=== PATIENT | male | born 1980 | race Caucasian/White ===

== ENCOUNTER 2018-06-17 15:56 | Observation (INO) ==
[2018-06-17] MEDS ORDERED: Sod Chloride 0.9% Inj 1,000 ML IV.SIG ONE ×2 (16:25→17:39)
--- NOTE | 2018-06-17 16:56 | XR ---
EXAM DATE: 06/17/2018 4:54 PM EDT AGE/SEX: 38 years / Male INDICATIONS: Short of breath. Chest pain. CLINICAL DATA: This is the patient's initial encounter. Patient reports that signs and symptoms have been present for 1 day and indicates a pain score of 5/10. MEDICAL/SURGICAL HISTORY: None. None. COMPARISON: HPO, CHEST 1V SINGLE AP, 06/05/2018. . FINDINGS: A single AP view of the chest demonstrates the lungs to be symmetrically aerated without evidence of mass, infiltrate or effusion. The cardiomediastinal contours are unremarkable. Osseous structures a re intact. CONCLUSION: 1. No acute cardiopulmonary disease. Electronically signed by: Boogie Grande MD 06/17/2018 4:54 PM EDT
--- NOTE | 2018-06-17 17:03 | ED ---
HPI General Chief Complaint: Chest Pain Stated Complaint: Chest pain previously dx with anxiety Source: patient Mode of arrival: ambulatory Limitations: no limitations History of Present Illness HPI narrative: 38-year-old male complains of chest pain palpitations anxiety. He states the very first episode occurred about 2-1/2 years prior. Since then the episodes have become more frequent and he reports now experiencing them once daily at least. Today the patient was relaxing watching TV and felt his chest become tight and warm and then warmth spread all over his body. He reports losing his job about a month and a half ago and has been very stressed out because of it. He has not tried [id number] medication. He reports eating healthy food now. He does not drink coffee having quit in an effort to mitigate symptoms. 12 days prior he was seen here with essentially the same complaint and workup at that point was unremarkable. And included a d-dimer troponin and blood work as well as an EKG and chest x-ray. He was prescribed Xanax 0.5 mg tablets that he took 0.25 as needed for anxiety. He states that Xanax is marginally helpful however he still had anxiety while taking the Xanax. Patient also reports that his blood pressure at times during anxious episodes and reports systolic rates from 110s to 140s. Complete Quality Measures for STEMI Alert Patients Related Data Previous Rx's Medication Instructions Recorded alprazolam [Xanax] 0.25 mg PO BID PRN #7 tab 06/05/18 Allergies Allergy/AdvReac Type Severity Reaction Status Date / Time No Known Allergies Allergy Verified 06/17/18 15:58 Review of Systems ROS: all other systems reviewed are negative [facility] Medical History Medical History Anxiety (Acute) Social History Social History Substance History: No History of Abuse Second Hand Smoke Exposure: No Smoking Status: Current every day smoker Tobacco Type: E-Cigarettes How Often Do You Have a Drink Containing Alcohol: Never Recent Travel in [facility] within the Last 8 Weeks: No Recent Out of Country Travel within the Last 8 Weeks: No Exam Narrative Exam Narrative: GENERAL: 38-year-old male well-nourished well-developed minimally anxious though reasonably cooperative SKIN: Focused skin assessment warm/dry. HEAD: Atraumatic. Normocephalic. EYES: Pupils equal and round. No scleral icterus. No injection or drainage. ENT: No nasal bleeding or discharge. Mucous membranes pink and moist. NECK: Trachea midline. No JVD. CARDIOVASCULAR: Heart rate is about 80-90. Regular rhythm. RESPIRATORY: No accessory muscle use. Clear to auscultation. Breath sounds equal bilaterally. GASTROINTESTINAL: Abdomen soft, non-tender, nondistended. Hepatic and splenic margins not palpable. MUSCULOSKELETAL: No obvious deformities. No clubbing. No cyanosis. No edema. NEUROLOGICAL: Awake and alert. No obvious cranial nerve deficits. Motor grossly within normal limits. Normal speech. PSYCHIATRIC: Anxious. Dysthymic v agitated. Course Reevaluation(s) Reevaluation #1: BP down to 140/84 as of 537pm. Patient reports improved pain after nitro. He asked if waking up with anxiety and night is normal. He notes that heart rate increases to 120 at times during anxiety episodes. Pt states he is worried about his heart. Patient nonetheless resting comfortably and reports feeling better since arrival. Time: 17:28 Initial Documented Vital Signs Temperature 97.8 F 06/17/18 15:58 Pulse Rate 73 06/17/18 15:58 Respiratory Rate 16 06/17/18 15:58 Blood Pressure 147/87 H 06/17/18 15:58 Pulse Oximetry 100 06/17/18 15:58 Last Documented Vital Signs Temperature 97.8 F 06/17/18 15:58 Pulse Rate 62 06/17/18 17:30 Respiratory Rate 18 06/17/18 17:30 Blood Pressure 140/84 06/17/18 17:30 Pulse Oximetry 98 06/17/18 17:30 Medical Decision Making MDM Narrative Medical decision making narrative: Results of the workup were discussed. Patient is very low risk for coronary disease with the only real risk factor being history of smoking, now vaping. Workup today is unremarkable and we have a reasonable alternative explanation, anxiety, however the patient has verbalized improvement after nitro and grave concern regarding coronary health. Chest pain center evaluation protocol considered a reasonable next step for this patient. Case d/w Dr Miller for [facility]. Medical Screen Exam Complete: Yes Emergency Medical Condition: Yes Medical Records Medical records reviewed: Yes I reviewed the patient's medical records. Lab Data Lab results reviewed: Yes I reviewed the patient's lab results. Lab results narrative: Tn < 0.02 Urine drug screen is negative Result diagrams: 06/17/18 16:50 06/17/18 16:50 Lab Results 06/17/18 06/17/18 06/17/18 Range/Units 16:50 16:50 17:20 CBC w Diff Auto diff final WBC 10.3 (4.0-11.0) th/mm3 RBC 5.41 (4.50-5.90) mil/mm3 Hgb 16.9 (13.0-17.0) gm/dL Hct 50.9 (39.0-51.0) % MCV 94.2 (80.0-100.0) fL MCH 31.2 (27.0-34.0) pg MCHC 33.1 (32.0-36.0) % RDW 11.7 (11.6-17.2) % Plt Count 279 (150-450) th/mm3 MPV 9.1 (7.0-11.0) fL Neut % (Auto) 66.1 (16.0-70.0) % Lymph % (Auto) 26.4 (9.0-44.0) % [place] % (Auto) 4.1 (0.0-8.0) % Eos % (Auto) 1.9 (0.0-4.0) % Baso % (Auto) 1.5 (0.0-2.0) % Neut # (Auto) 6.8 (1.8-7.7) th/mm3 Lymph # (Auto) 2.7 (1.0-4.8) th/mm3 [place] # (Auto) 0.4 (0.0-0.9) th/mm3 Eos # (Auto) 0.2 (0.0-0.4) th/mm3 Baso # (Auto) 0.2 (0.0-0.2) th/mm3 WBC Differential . Differential Comment . Sodium 138 (136-145) meq/L Potassium 3.2 L (3.5-5.1) meq/L Chloride 102 (98-107) meq/L Carbon Dioxide 24.1 (21.0-32.0) meq/L Anion Gap 12 (5-15) meq/L BUN 10 (7-18) mg/dL Creatinine 1.10 (0.60-1.30) mg/dL Estimated GFR 75 L (>89) mL/min Random Glucose 112 H (74-106) mg/dL Calcium 9.4 (8.5-10.1) mg/dL Magnesium 2.4 (1.5-2.5) mg/dL Troponin I Less than 0.02 L (0.02-0.05) ng/mL Urine Opiates Screen Neg (Neg) Ur Barbiturates Screen Neg (Neg) Ur Amphetamines Screen Neg (Neg) U Benzodiazepines Scrn Neg (Neg) Urine Cocaine Screen Neg (Neg) U Cannabinoids Screen Neg (Neg) Imaging Data Radiologist's impression: Chest X-Ray 06/17/18 16:25 CONCLUSION: 1. No acute cardiopulmonary disease. ECG Data Attestation: I personally reviewed and interpreted this ECG as follows: Interpretation: EKG shows sinus rhythm normal axis intervals no ischemic injury pattern Discharge Plan Discharge Disposition Patient Disposition: 30 Still Patient Physicians Team ED Provider: Lalo Britton Primary Care Provider: Primary Care Tuyet Elias Attending Provider: William Miller Discharge Interventions Interventions: Vital Signs Last Done: 06/17/18 16:20 Status ED Status: Admitted Observation Patient
[2018-06-17 17:06] LABS: Chloride 102 meq/L (98-107); Potassium 3.2 meq/L (3.5-5.1); Sodium 138 meq/L (136-145)
[2018-06-17 17:08] LABS: Calcium 9.4 mg/dL (8.5-10.1)
[2018-06-17 17:09] LABS: Anion Gap 12 meq/L (5-15); Blood Urea Nitrogen 10 mg/dL (7-18); Carbon Dioxide 24.1 meq/L (21.0-32.0); Glucose,Random 112 mg/dL (74-106); Magnesium 2.4 mg/dL (1.5-2.5)
[2018-06-17 17:10] LABS: Baso # (Auto) 0.2 th/mm3 (0.0-0.2); Baso % (Auto) 1.5 % (0.0-2.0); Eos # (Auto) 0.2 th/mm3 (0.0-0.4); Eos % (Auto) 1.9 % (0.0-4.0); Hematocrit 50.9 % (39.0-51.0); Hemoglobin 16.9 gm/dL (13.0-17.0); Lymph # (Auto) 2.7 th/mm3 (1.0-4.8); Lymph % (Auto) 26.4 % (9.0-44.0); Mean Corpuscular HGB Conc 33.1 % (32.0-36.0); Mean Corpuscular Hemoglobin 31.2 pg (27.0-34.0); Mean Corpuscular Volume 94.2 fL (80.0-100.0); Mean Platelet Volume 9.1 fL (7.0-11.0); Mono # (Auto) 0.4 th/mm3 (0.0-0.9); Mono % (Auto) 4.1 % (0.0-8.0); Neut # (Auto) 6.8 th/mm3 (1.8-7.7); Neut % (Auto) 66.1 % (16.0-70.0); Platelet Count 279 th/mm3 (150-450); Red Blood Count 5.41 mil/mm3 (4.50-5.90); Red Cell Distribution Width 11.7 % (11.6-17.2); White Blood Count 10.3 th/mm3 (4.0-11.0)
[2018-06-17 17:12] LABS: Glomerular Filtration Rate 75 mL/min (>89)
[2018-06-17 17:41] LABS: Amphetamine Screen,Urine Neg (Neg); Barbiturate Screen,Urine Neg (Neg); Cannabinoid Screen,Urine Neg (Neg); Cocaine Screen,Urine Neg (Neg)
[2018-06-17 17:48] LABS: Opiate Screen,Urine Neg (Neg)
[2018-06-17] MEDS ORDERED: Bisacodyl 10 MG Supp RECTAL PRN (18:45)
[2018-06-17] MEDS ORDERED: Acetaminophen 325 MG Tablet PO PRN (18:45)
--- NOTE | 2018-06-17 19:01 | P.HP ---
History of Present Illness Primary Care Physician: No Primary Care Physician Chief Complaint: chest pain History of Present Illness: This is a 38-year-old male with a history of anxiety. He presents to the emergency room complaining of chest pain. It starts as a warm sensation in his chest then spreads to the rest of his body associated with palpitations, heavy breathing and chest discomfort which he described as sharp and sometimes dull without radiation, nausea and diaphoresis. It is not related to exertion. Patient was seen in the emergency room about 2 weeks ago for similar complaints underwent negative workup. He was prescribed Xanax which according to him provided temporary relief. He still claims to have anxiety especially that he is currently unemployed. Denies depression. In the emergency room, he received aspirin, IV Ativan and sublingual nitroglycerin which helped with his symptoms. At this time he is symptom-free. All other systems reviewed negative. Risk factors for heart disease family history of [place], diabetes mellitus and hypertension. He used to smoke currently on E cigarettes. Review of Systems All other systems reviewed negative except as stated in HPI [facility] - History History Provided By: Patient - Medical History Medical History: Medical History (Last Updated 06/17/18 @ 16:19 by Melisa Mejia RN) Anxiety - Surgical History Surgical History: Surgical History (Last Reviewed 06/17/18 @ 16:19 by Melisa Mejia RN) No history of previous surgery - Tobacco History Second Hand Smoke Exposure: No Tobacco Use In Past 30 Days: Yes Smoking Status: Current every day smoker Tobacco Type: E-Cigarettes - Alcohol History How Often Do You Have a Drink Containing Alcohol: Never - Substance Use History Substance History: No History of Abuse - Travel History Recent Travel in the [place] Within the Last 8 Weeks: No Recent Travel Out of the Country Within the Last 8 Weeks: No - Immunization History Tetanus Immunization: >5 Years Hx Influenza Vaccine This Season: No Medications and Allergies Active Medications: Active Medications Acetaminophen (Tylenol) 650 mg PO Q4H PRN PRN Reason: Temp > 100.4 Al Hydroxide/Mg Hydroxide (Milk Of Magnmary Liq) 30 ml PO Q12H PRN PRN Reason: Mild Constipation Alprazolam (Xanax) 0.25 mg PO BID PRN PRN Reason: anxiety Bisacodyl (Dulcolax Supp) 10 mg RECTAL DAILY PRN PRN Reason: SEVERE CONSITIPATION Buspirone HCl (Buspar) 5 mg PO TID FRANCOIS Lactulose (Lactulose Liq) 30 ml PO DAILY PRN PRN Reason: SEVERE CONSITIPATION Nitroglycerin (Nitrostat Sl) 0.4 mg SL Q5M PRN PRN Reason: CHEST PAIN Ondansetron HCl (Zofran Inj) 4 mg IV.PUSH Q6H PRN PRN Reason: NAUSEA OR VOMITING Senna/Docusate Sodium (Erma-Colace) 1 tab PO BID FRANCOIS Sennosides (Senokot) 17.2 mg PO Q12H PRN PRN Reason: Moderate Constipation Sodium Chloride (Ns Flush) 2 ml IV.FLUSH UNSCH PRN PRN Reason: FLUSH AFTER USING IV ACCESS Allergies Allergy/AdvReac Type Severity Reaction Status Date / Time No Known Allergies Allergy Verified 06/17/18 15:58 Exam Vital signs: Vital Signs 06/17/18 15:58 06/17/18 16:20 06/17/18 17:30 Temperature 97.8 F Pulse Rate 73 102 H 62 Respiratory Rate 16 18 18 Blood Pressure 147/87 H 203/92 H 140/84 Pulse Oximetry 100 98 98 Intake & Output 06/16/18 06/17/18 06/17/18 18:59 06:59 18:59 Intake Total 1000 / 1000 Balance 1000 / 1000 Weight 104 kg Intake: IV 1000 / 1000 NS Inj 1,000 ML @ Wide Open IV. 1000 / 1000 SIG BOLUS ONE Rx#:[id number] Narrative: GENERAL: Well-developed and well-nourished in no distress SKIN: Warm and dry. HEAD: Atraumatic. Normocephalic. EYES: Pupils equal and round. No scleral icterus. No injection or drainage. ENT: No nasal bleeding or discharge. Mucous membranes pink and moist. NECK: Trachea midline. No JVD. CARDIOVASCULAR: Regular rate and rhythm. No chest wall tenderness RESPIRATORY: No accessory muscle use. Clear to auscultation. Breath sounds equal bilaterally. GASTROINTESTINAL: Abdomen soft, non-tender, nondistended. MUSCULOSKELETAL: Extremities without clubbing, cyanosis, or edema. No obvious deformities. NEUROLOGICAL: Awake and alert. No obvious cranial nerve deficits. Motor grossly within normal limits. Five out of 5 muscle strength in the arms and legs. Normal speech. PSYCHIATRIC: Appropriate mood and affect; insight and judgment normal. Results - Labs CBC & Chem 7: 06/17/18 16:50 06/17/18 16:50 Labs: Laboratory Results - last 24 hr 06/17/18 06/17/18 06/17/18 16:50 16:50 17:20 CBC w Diff Auto diff final WBC 10.3 RBC 5.41 Hgb 16.9 Hct 50.9 MCV 94.2 MCH 31.2 MCHC 33.1 RDW 11.7 Plt Count 279 MPV 9.1 Neut % (Auto) 66.1 Lymph % (Auto) 26.4 [place] % (Auto) 4.1 Eos % (Auto) 1.9 Baso % (Auto) 1.5 Neut # (Auto) 6.8 Lymph # (Auto) 2.7 [place] # (Auto) 0.4 Eos # (Auto) 0.2 Baso # (Auto) 0.2 WBC Differential . Differential Comment . Sodium 138 Potassium 3.2 L Chloride 102 Carbon Dioxide 24.1 Anion Gap 12 BUN 10 Creatinine 1.10 Estimated GFR 75 L Random Glucose 112 H Calcium 9.4 Magnesium 2.4 Troponin I Less than 0.02 L Urine Opiates Screen Neg Ur Barbiturates Screen Neg Ur Amphetamines Screen Neg U Benzodiazepines Scrn Neg Urine Cocaine Screen Neg U Cannabinoids Screen Neg - Imaging Impressions Chest X-Ray 06/17/18 16:25 CONCLUSION: 1. No acute cardiopulmonary disease. Caprini VTE Risk Assessment Caprini VTE Risk Assessment: No/Low Risk (score <= 1) Caprini Risk Assessment Model: Point Value = 1 Point Value = 2 Point Value = 3 Point Value = 5 Age 41-60 Minor surgery BMI > 25 kg/m2 Swollen legs Varicose veins or History of unexplained or recurrent spontaneous Oral contraceptives or hormone replacement Sepsis (< 1 month) Serious lung disease, including pneumonia (< 1 month) Abnormal pulmonary function Acute myocardial infarction Congestive heart failure (< 1 month) History of inflammatory bowel disease Medical patient at bed rest Age 61-74 Arthroscopic surgery Major open surgery (> 45 min) Laparoscopic surgery (> 45 min) Malignancy Confined to bed (> 72 hours) Immobilizing plaster cast Central venous access Age >= 75 History of VTE Family history of VTE Factor V Leiden Prothrombin [id number] Lupus anticoagulant Anticardiolipin antibodies Elevated serum homocysteine Heparin-induced thrombocytopenia Other congenital or acquired thrombophilia Stroke (< 1 month) Elective arthroplasty Hip, pelvis, or leg fracture Acute spinal cord injury (< 1 month) Prophylaxis Regimen: Total Risk Factor Score Risk Level Prophylaxis Regimen 0-1 Low Early ambulation 2 Moderate Order ONE of the following: *Sequential Compression Device (SCD) *Heparin 5000 units SQ BID 3-4 Higher Order ONE of the following medications: *Heparin 5000 units SQ TID *Enoxaparin/Lovenox 40 mg SQ daily (WT < 150 kg, CrCl > 30 mL/min) *Enoxaparin/Lovenox 30 mg SQ daily (WT < 150 kg, CrCl > 10-29 mL/min) *Enoxaparin/Lovenox 30 mg SQ BID (WT < 150 kg, CrCl > 30 mL/min) AND/OR *Sequential Compression Device (SCD) 5 or more Highest Order ONE of the following medications: *Heparin 5000 units SQ TID (Preferred with Epidurals) *Enoxaparin/Lovenox 40 mg SQ daily (WT < 150 kg, CrCl > 30 mL/min) *Enoxaparin/Lovenox 30 mg SQ daily (WT < 150 kg, CrCl > 10-29 mL/min) *Enoxaparin/Lovenox 30 mg SQ BID (WT < 150 kg, CrCl > 30 mL/min) AND *Sequential Compression Device (SCD) Assessment and Plan - Plan This is a 38-year-old male with a history of anxiety. He presents to the emergency room complaining of chest pain relieved with aspirin, nitroglycerin and IV Ativan. Risk factors for heart disease include family history of AZ, diabetes mellitus and hypertension. He used to smoke currently on E cigarettes. Atypical chest pain. Initial EKG is unremarkable tracing interpreted by me with sinus rhythm with no acute ST-T changes. Trend cardiac enzymes. Chest x- ray image interpreted by me with no acute cardiopulmonary disease. He received aspirin. Sublingual nitroglycerin as needed. N.p.o. post midnight for Lexiscan if he rules out for AZ. Patient unable to do exercise stress test secondary to right knee pain. Tobacco cessation. Anxiety. Start BuSpar and continue Xanax patient aware I will not be prescribing Xanax when he gets discharged Hypokalemia potassium 3.2. Patient received 20 mEq p.o. Will give another 20 mEq p.o. and repeat BMP and magnesium in the morning low risk for DVT Discharge Planning: Possible discharge home tomorrow if negative stress test
[2018-06-17] MEDS ORDERED: ALPRAZolam 0.25 MG Tablet PO PRN (20:15)
[2018-06-17] MEDS: Senna/Docusate Sodium 8.6/50 MG Tablet PO SCH (20:39)
[2018-06-17 22:57] LABS: Creatine Kinase 148 U/L (39-308)
--- NOTE | 2018-06-17 23:41 | ECG ---
Date Performed: 06/17/2018 Time Performed: 16:08:41 PTAGE: 38 years EKG: Sinus rhythm NORMAL ECG PREVIOUS TRACING : 06/05/2018 09.05 Since the previous tracing, no significant change noted DOCTOR: Jassi Britton Interpretating Date/Time 06/17/2018 23:39:05
[2018-06-18 06:19] LABS: Creatine Kinase 125 U/L (39-308)
[2018-06-18] MEDS: Senna/Docusate Sodium 8.6/50 MG Tablet PO SCH ×2 (08:18→08:25)
[2018-06-18 08:29] VITALS: RESP 20
[2018-06-18 08:54] LABS: Potassium 3.8 meq/L (3.5-5.1)
[2018-06-18 08:56] LABS: Calcium 8.9 mg/dL (8.5-10.1); Carbon Dioxide 28.6 meq/L (21.0-32.0)
[2018-06-18] MEDS ORDERED: Regadenoson Inj 0.4 MG/5 ML Syringe IV.PUSH ONE (09:47)
--- NOTE | 2018-06-18 11:21 | NM ---
EXAM DATE: 06/18/2018 10:48 AM EDT AGE/SEX: 38 years / Male INDICATIONS:Angina. . Substernal chest pain with palpitations and dyspnea. CLINICAL DATA: This is the patient's initial encounter. Patient reports that signs and symptoms have been present for 1 day and indicates a pain score of 1/10. MEDICAL/SURGICAL HISTORY: None. None. COMPARISON: No prior exams available for comparison. DOSE: 11 mCi Tc 99m Myoview at rest 35 mCi [id number] at stress 0.4 mg Lexiscan STRESS SYMPTOMS: Dyspnea. EJECTION FRACTION: 63 % TECHNIQUE: The patient underwent pharmacologic stress with infusion of prescribed dose. Continuous ECG tracing was monitored during stress. Gated SPECT imaging was performed after stress and conventi onal SPECT imaging was performed at rest. The examination was performed on a SPECT/CT scanner, both attenuation and non-corrected datasets were reviewed. FINDINGS: Distribution: The maximum perfused segment at stress is in the anterior lateral wall Perfusion Study: The pattern of perfusion at stress is within normal limits. Gated Study: There are intact wall motion and wall thickening without hypokinetic or dyskinetic segm ents. The ejection fraction is calculated at 63%. RISK CATEGORY: Low (<1% Annual Motality Rate) CONCLUSION: 1. Negative for stress-induced ischemia Electronically signed by: Sal Stoddard MD 06/18/2018 11:19 AM EDT
[2018-06-18 11:29] VITALS: O2SAT 99
--- NOTE | 2018-06-18 11:31 | P.PN ---
Subjective Interval history: Follow-up chest pain. No recurrence. Slept well. Patient educated regarding his anxiety. Physical Exam Vital signs: Vital Signs 06/17/18 15:58 06/17/18 16:20 06/17/18 17:30 Temperature 97.8 F Pulse Rate 73 102 H 62 Respiratory Rate 16 18 18 Blood Pressure 147/87 H 203/92 H 140/84 Pulse Oximetry 100 98 98 06/17/18 20:00 06/18/18 00:00 06/18/18 04:00 Temperature 98.1 F 97.5 F L 97.3 F L Pulse Rate 72 65 60 Respiratory Rate 18 18 18 Blood Pressure 132/85 113/66 115/73 Pulse Oximetry 97 96 97 06/18/18 08:00 Temperature 97.2 F L Pulse Rate 73 Respiratory Rate 20 Blood Pressure 117/76 Pulse Oximetry 100 Intake & Output 06/17/18 06/18/18 06/18/18 18:59 06:59 18:59 Intake Total 1000 / 1000 1480 / 1480 0 / 0 Output Total 500 / 500 Balance 1000 / 1000 1480 / 1480 -500 / -500 Weight 104 kg 103.7 kg Intake: IV 1000 / 1000 1000 / 1000 NS Inj 1,000 ML @ Wide Open IV. 1000 / 1000 1000 / 1000 SIG BOLUS ONE Rx#:[id number] Oral 480 / 480 0 / 0 Output: Urine 500 / 500 Other: # Voids 2 Date of Last Bowel Movement 06/17/18 Weight On Admission 105.4 kg Narrative: GENERAL: Well-developed and well-nourished in no distress SKIN: Warm and dry. CARDIOVASCULAR: Regular rate and rhythm. No chest wall tenderness RESPIRATORY: No accessory muscle use. Clear to auscultation. Breath sounds equal bilaterally. GASTROINTESTINAL: Abdomen soft, non-tender, nondistended. MUSCULOSKELETAL: Extremities without clubbing, cyanosis, or edema. No obvious deformities. NEUROLOGICAL: Awake and alert. No obvious cranial nerve deficits. Motor grossly within normal limits. Five out of 5 muscle strength in the arms and legs. Normal speech. PSYCHIATRIC: Appropriate mood and affect; insight and judgment normal. Results - Labs CBC & Chem 7: 06/17/18 16:50 06/18/18 04:40 Laboratory Results - last 24 hr 06/17/18 06/17/18 06/17/18 16:50 16:50 17:20 CBC w Diff Auto diff final WBC 10.3 RBC 5.41 Hgb 16.9 Hct 50.9 MCV 94.2 MCH 31.2 MCHC 33.1 RDW 11.7 Plt Count 279 MPV 9.1 Neut % (Auto) 66.1 Lymph % (Auto) 26.4 [place] % (Auto) 4.1 Eos % (Auto) 1.9 Baso % (Auto) 1.5 Neut # (Auto) 6.8 Lymph # (Auto) 2.7 [place] # (Auto) 0.4 Eos # (Auto) 0.2 Baso # (Auto) 0.2 WBC Differential . Differential Comment . Sodium 138 Potassium 3.2 L Chloride 102 Carbon Dioxide 24.1 Anion Gap 12 BUN 10 Creatinine 1.10 Estimated GFR 75 L Random Glucose 112 H Calcium 9.4 Magnesium 2.4 Total Creatine Kinase Troponin I Less than 0.02 L Urine Opiates Screen Neg Ur Barbiturates Screen Neg Ur Amphetamines Screen Neg U Benzodiazepines Scrn Neg Urine Cocaine Screen Neg U Cannabinoids Screen Neg 06/17/18 06/18/18 06/18/18 22:30 04:40 04:40 CBC w Diff WBC RBC Hgb Hct MCV MCH MCHC RDW Plt Count MPV Neut % (Auto) Lymph % (Auto) [place] % (Auto) Eos % (Auto) Baso % (Auto) Neut # (Auto) Lymph # (Auto) [place] # (Auto) Eos # (Auto) Baso # (Auto) WBC Differential Differential Comment Sodium 143 Potassium 3.8 Chloride 107 Carbon Dioxide 28.6 Anion Gap 7 BUN 12 Creatinine 1.10 Estimated GFR 75 L Random Glucose 102 Calcium 8.9 Magnesium Total Creatine Kinase 148 125 Troponin I Less than 0.02 L Less than 0.02 L Urine Opiates Screen Ur Barbiturates Screen Ur Amphetamines Screen U Benzodiazepines Scrn Urine Cocaine Screen U Cannabinoids Screen - Imaging Impressions Chest X-Ray 06/17/18 16:25 CONCLUSION: 1. No acute cardiopulmonary disease. Myocardial Perfusion Scan Nuc Med 06/18/18 00:00 CONCLUSION: 1. Negative for stress-induced ischemia - Procedures none Assessment and Plan - Plan This is a 38-year-old male with a history of anxiety. He presents to the emergency room complaining of chest pain relieved with aspirin, nitroglycerin and IV Ativan. Risk factors for heart disease include family history of [place], diabetes mellitus and hypertension. He used to smoke currently on E cigarettes. Atypical chest pain likely from anxiety. Patient ruled out for ME. EKG is unremarkable tracing interpreted by me with sinus rhythm with no acute ST-T changes. Trend cardiac enzymes. Chest x-ray image interpreted by me with no acute cardiopulmonary disease. Stress test negative for ischemia. Tobacco cessation. Anxiety. Continue BuSpar and Xanax patient aware I will not be prescribing Xanax when he gets discharged. Counseled regarding benzodiazepines Hypokalemia potassium 3.2. Replaced low risk for DVT Discharge Planning: Discharge patient to home Condition on discharge: Improved Regular Diet as tolerated Ad Amanda activity no driving Rx written: BuSpar Follow-up with primary care physician
[2018-06-18 13:20] VITALS: BP 128/76; PULSE 58; TEMP 97
--- NOTE | 2018-06-18 14:30 | TR ---
Date Performed: 06/18/2018 Time Performed: 10:04:33 DOCTOR: Dao Baker DRUG LIST: CLINICAL HISTORY: CHEST PAIN REASON FOR TEST: Chest pain REASON FOR ENDING: OBSERVATION: CONCLUSION: COMMENTS: Lexiscan stress test was performed under standard four minute protocol. Radionuclide was injected one minute prior to ending the test. No electrocardiographic abormalities were present t o suggest ischemia. Nuclear imaging and interpretation are pending.
== END 2018-06-18 13:37 | disposition home or self-care (01) ==
LOC: PH3 15:56 → PHED 15:56 → PHEDA 15:56 → PH3 19:49
PROVIDERS: ADMIT Internal Medicine; ATTEND Internal Medicine